=== PATIENT | male | born 1970 ===

== ENCOUNTER 2025-03-24 19:36 | Emergency (ER) | payer SELFPAY ==
[~2025-03-24] VITALS: Ht 177.8 cm; Wt 84.8 kg
[2025-03-24 19:47] VITALS: PULSE 65; RESP 18; TEMP 98.9
[2025-03-24] MEDS: LACTATED RINGER'S 1,000 ML INJ ONE (20:38)
[2025-03-24] MEDS: FAMOTIDINE 20 MG/2 ML VIAL IV ONE (20:39)
[2025-03-24] MEDS: KETOROLAC TROMETHAMINE 30 MG/ML VIAL IV ONE (20:39)
[2025-03-24] MEDS: ONDANSETRON HCL INJ 2MG/ML 2ML 2 MG/ML VIAL IV ONE (20:39)
[2025-03-24] MEDS ORDERED: MAALOX MAXIMUM355 ML PO (22:47)
[2025-03-24] MEDS ORDERED: ONDANSETRON ODT4 MG PO (22:48)
[2025-03-24] MEDS ORDERED: PANTOPRAZOLE SO40 MG PO (22:48)
[2025-03-24 22:55] VITALS: BP 162/92; PULSE 62; RESP 18; TEMP 98.6; O2SAT 99
== END 2025-03-24 23:25 | disposition home or self-care (01) ==
LOC: FSED 19:42
DX: R11.2 Nausea with vomiting, unspecified (principal); A05.9 Bacterial foodborne intoxication, unspecified; K29.00 Acute gastritis without bleeding; N20.0 Calculus of kidney; R10.13 Epigastric pain
CPT/HCPCS: 74176; 99283; J1308; J1885; J2405; J7121